=== PATIENT | female | born 1965 | race Caucasian/White ===

== ENCOUNTER 2022-10-24 08:18 | Inpatient (IN) | payer OTHER ==
[~2022-10-24] VITALS: Ht 175.3 cm; Wt 69.3 kg
[2022-10-24 09:21] LABS: Urine Bacteria MANY /hpf (None Seen); Urine Blood Negative /uL (Negative); Urine Hyaline Cast FEW /lpf (0 - 2); Urine WBC 17 /hpf (0 - 5)
[2022-10-24] MEDS ORDERED: cefTRIAXone 1GM/50ML D5W 50 ML IV ONE (12:45)
[2022-10-24 13:12] LABS: Basophils # (auto) 0.1 10 ^3/uL (0-0.2); Basophils % (auto) 1.1 % (0.0-2.0); Eosinophils # (auto) 0.1 10 ^3/uL (0-0.8); Eosinophils % (auto) 2.3 % (0.0-7.0); Hematocrit 47.6 % (36.0-46.0); Hemoglobin 16.4 g/dL (12.2-16.2); Lymphocytes # (auto) 2.4 10 ^3/uL (0.4-5.4); Lymphocytes % (auto) 41.2 % (10.0-50.0); Mean Corpuscular Hemoglobin 31.1 pg (28.0-32.0); Mean Corpuscular Hgb Conc. 34.5 g/dL (32.0-36.0); Mean Corpuscular Volume 90.1 fL (80.0-100.0); Monocytes # (auto) 0.3 10 ^3/uL (0-1.3); Monocytes % (auto) 5.1 % (0.0-12.0); Neutrophils % (auto) 50.3 % (37.0-80.0); Nucleated Red Blood Cells % 0.4 %; Red Blood Cells 5.28 10^6/uL (4.0-5.20); Red Cell Distribution Width 13.4 % (11.8-14.3); White Blood Cell 5.9 10^3/uL (4.4-10.8)
[2022-10-24 13:30] LABS: Calcium 9.7 mg/dL (8.5-10.1); Magnesium 2.9 mg/dL (1.6-2.6); Potassium 4.2 mmol/L (3.5-5.1)
[2022-10-24 13:34] LABS: BUN/Creatinine Ratio 22.7 (10.0-20.0); Bilirubin, Total 0.3 mg/dL (0.2-1.0); Total Protein 7.8 g/dL (6.4-8.2)
[2022-10-24] MEDS ORDERED: CEPHALEXIN 250 MG CAP PO ONE (14:15)
[2022-10-24] MEDS ORDERED: NITROGLYCERIN 0.4 MG SL TAB SL PRN (16:30)
[2022-10-24] MEDS ORDERED: MECLIZINE HCL 25 MG TAB PO ONE (16:30)
[2022-10-24] MEDS ORDERED: ONDANSETRON HCL 4 MG/2 ML VIAL IV PRN (16:30)
[2022-10-24] MEDS ORDERED: PANTOPRAZOLE 40 MG/10 ML VIAL INJ IV ONE (16:30)
[2022-10-24] MEDS ORDERED: MORPHINE SULFATE INJ 2 MG/ml SYRG IV PRN (16:30)
[2022-10-24] MEDS: SODIUM CHLORIDE 0.9% 1,000 ML IV SCH (17:20)
[2022-10-24 19:10] LABS: Alcohol, Urine < 3.0 mg/dL (0-10); Amphetamine Screen, Urine NEGATIVE (NEGATIVE); Barbiturate Scree,Urine NEGATIVE (NEGATIVE); Benzodiazephine Screen, Urine NEGATIVE (NEGATIVE); Cannabinoid Screen, Urine NEGATIVE (NEGATIVE); Cocaine Screen, Urine NEGATIVE (NEGATIVE); Opiate Scree,Urine NEGATIVE (NEGATIVE); Phencyclidine Screen, Urine NEGATIVE (NEGATIVE)
[2022-10-24] MEDS: MECLIZINE HCL 25 MG TAB PO SCH (22:00)
[2022-10-25 05:01] LABS: Basophils # (auto) 0 10 ^3/uL (0-0.2); Basophils % (auto) 0.7 % (0.0-2.0); Eosinophils # (auto) 0.2 10 ^3/uL (0-0.8); Eosinophils % (auto) 3.4 % (0.0-7.0); Hematocrit 40.3 % (36.0-46.0); Hemoglobin 13.8 g/dL (12.2-16.2); Lymphocytes # (auto) 2.3 10 ^3/uL (0.4-5.4); Lymphocytes % (auto) 47.2 % (10.0-50.0); Mean Corpuscular Hemoglobin 31.2 pg (28.0-32.0); Mean Corpuscular Hgb Conc. 34.3 g/dL (32.0-36.0); Monocytes # (auto) 0.4 10 ^3/uL (0-1.3); Monocytes % (auto) 7.2 % (0.0-12.0); Neutrophils % (auto) 41.5 % (37.0-80.0); Nucleated Red Blood Cells % 0.1 %; Red Blood Cells 4.43 10^6/uL (4.0-5.20); Red Cell Distribution Width 13.6 % (11.8-14.3); White Blood Cell 4.9 10^3/uL (4.4-10.8)
[2022-10-25 05:19] LABS: Albumin 3.2 g/dL (3.4-5.0); Calcium 8.8 mg/dL (8.5-10.1); Potassium 3.8 mmol/L (3.5-5.1)
[2022-10-25 05:24] LABS: BUN/Creatinine Ratio 21.7 (10.0-20.0); Bilirubin, Total 0.3 mg/dL (0.2-1.0); Total Protein 6.5 g/dL (6.4-8.2)
[2022-10-25] MEDS: SODIUM CHLORIDE 0.9% 1,000 ML IV SCH ×3 (05:50→21:14)
[2022-10-25] MEDS: cefTRIAXone 1GM/50ML D5W 50 ML IV SCH (09:00)
[2022-10-25] MEDS: ACETAMINOPHEN 325 MG TAB PO PRN ×2 (09:40→22:02)
[2022-10-25] MEDS: ENOXAPARIN SOD 40 MG/0.4 ML SYRINGE SC SCH (10:06)
[2022-10-25] MEDS: MECLIZINE HCL 25 MG TAB PO SCH ×2 (10:07→22:02)
[2022-10-25] MEDS: PANTOPRAZOLE 40 MG/10 ML VIAL INJ IV SCH (10:08)
[2022-10-26] MEDS: SODIUM CHLORIDE 0.9% 1,000 ML IV SCH ×2 (04:15→07:03)
[2022-10-26] MEDS: cefTRIAXone 1GM/50ML D5W 50 ML IV SCH (09:13)
[2022-10-26] MEDS: ENOXAPARIN SOD 40 MG/0.4 ML SYRINGE SC SCH (10:00)
[2022-10-26] MEDS: PANTOPRAZOLE 40 MG/10 ML VIAL INJ IV SCH (10:00)
[2022-10-26] MEDS: MECLIZINE HCL 25 MG TAB PO SCH (10:00)
[2022-10-26 13:00] VITALS: BP 138/66
[2022-10-26 14:07] VITALS: BP 115/81
[2022-10-26 14:41] VITALS: BP 138/66
[2022-10-27] MEDS ORDERED: LEVO500T31 PO (12:28)
== END 2022-10-26 16:27 | disposition home or self-care (01) | DRG 309 ==
LOC: ER 08:18 → TELE 16:27 → TELE-WESTW 10-25 21:35
PROVIDERS: ADMIT Nurse Practitioner Family; ATTEND Internal Medicine
DX: R00.1 Bradycardia, unspecified (principal); N39.0 Urinary tract infection, site not specified; M79.7 Fibromyalgia; Z20.822 Contact with and (suspected) exposure to COVID-19; Z88.1 Allergy status to other antibiotic agents; E03.9 Hypothyroidism, unspecified
CPT/HCPCS: 36415; 70450; 71045; 80053; 80307; 81001; 83735; 83880; 84443; 84484; 85025; 87426; 93005; 93017; 93306; 93886; C9113; G0378; J0696